=== PATIENT | male | born 1985 | race Caucasian/White ===

== ENCOUNTER 2021-03-25 04:20 | Emergency (ER) | payer SELFPAY ==
[2021-03-25 06:31] LABS: BASOPHIL 1.4 % (0-2); EOSINOPHIL 2.7 % (0-5); HCT 48.1 % (42.0-52.0); MCH 31.1 pg (25.0-31.0); MCHC 35.3 g/dL (32.0-36.0); MCV 87.9 fL (78.0-100.0); MONOCYTE 6.7 % (0-12); MPV 10.3 fL (6.0-9.5); NRBC 0; PLT 244 K/uL (150-400); RBC 5.47 M/uL (4.70-6.00); RDW 11.7 % (11.5-14.0); WBC 10.8 K/uL (4.0-10.5)
[2021-03-25 07:01] LABS: CREATININE 0.95 mg/dL (0.67-1.17); FT4 (FREE T4) 0.8 ng/dL (0.76-1.46); POTASSIUM 4.5 mmol/L (3.5-5.1)
[2021-03-25] MEDS ORDERED: NORVASC5 MG PO (08:49)
[2021-03-25] MEDS ORDERED: METOPROLOL TART25 M1 PO (09:02)
[2021-03-25 10:10] LABS: CORONAVIRUS 2019 SARS-COV-2 NEGATIVE (NEGATIVE); INFLUENZA A NAA NEGATIVE (NEGATIVE)
== END 2021-03-25 09:52 | disposition home or self-care (01) ==
LOC: FER 04:20
PROVIDERS: Emergency Medicine Emergency Medical Services; Internal Medicine
DX: I10 Essential (primary) hypertension (principal); R07.89 Other chest pain; F17.210 Nicotine dependence, cigarettes, uncomplicated; Z20.822 Contact with and (suspected) exposure to COVID-19; Z88.6 Allergy status to analgesic agent
CPT/HCPCS: 36415; 71045; 71275; 80048; 83880; 84439; 84443; 84484; 85025; 85379; 93005; J1885; U0002